=== PATIENT | female | born 1955 | race Two or more races ===

== ENCOUNTER 2022-12-16 14:24 | Outpatient (CLI) | payer OTHER | END 2022-12-16 14:30 | disposition home or self-care (01) | LOC: LAB 14:24 | PROVIDERS: ATTEND Radiology Diagnostic Radiology | DX: R93.3 Abnormal findings on diagnostic imaging of other parts of digestive tract (principal) ==

== ENCOUNTER → 2022-12-23 | Outpatient (CLI) | payer OTHER | END | disposition home or self-care (01) | LOC: MRI 10:30 | PROVIDERS: ATTEND Internal Medicine Gastroenterology | DX: K76.9 Liver disease, unspecified (principal) | CPT/HCPCS: 74183; Q9965; 74182 ==

== ENCOUNTER 2023-04-04 10:33 | Outpatient (CLI) | payer OTHER | END 2023-04-04 10:58 | disposition home or self-care (01) | LOC: MRI 10:33 | PROVIDERS: ATTEND Internal Medicine Hematology & Oncology | DX: M54.15 Radiculopathy, thoracolumbar region (principal); M54.17 Radiculopathy, lumbosacral region | CPT/HCPCS: 72157; 72158; Q9965; 72147; 72149 ==